=== PATIENT | female | born 2000 | race Caucasian/White ===

== ENCOUNTER 2024-09-30 15:14 | Outpatient (CLI) | payer MEDICAID, SELFPAY ==
[2024-09-30 21:58] LABS: Bacterial Vaginosis* POSITIVE (Negative); Candida glab/krus NOT DETECTED (No Detected); Candida species NOT DETECTED (No Detected); Trichomonas vaginalis NOT DETECTED (No Detected)
[2024-09-30 22:29] LABS: Chlamydia DNA Amplified* NOT DETECTED (No Detected); GC DNA Amplified* NOT DETECTED (No Detected)
[2024-10-02 15:05] LABS: HPV Source Cervix; HPV, High Risk by TMA Not Detected
== END 2024-09-30 15:15 | disposition home or self-care (01) ==
PROVIDERS: PCP Obstetrics & Gynecology; Visit Provider Registered Nurse
DX: Z11.3 Encounter for screening for infections with a predominantly sexual mode of transmission (principal); Z12.4 Encounter for screening for malignant neoplasm of cervix; Z13.6 Encounter for screening for cardiovascular disorders; Z13.1 Encounter for screening for diabetes mellitus; Z83.49 Family history of other endocrine, nutritional and metabolic diseases
CPT/HCPCS: 80061; 81513; 84443; 86592; 86703; 86803; 87340; 87481; 87491; 87591; 87624; 87625; 87661; 88141; 88142

== ENCOUNTER 2024-10-06 15:50 | Outpatient (CLI) | payer MEDICAID, SELFPAY ==
--- NOTE | 2024-10-06 16:00 | CRLHL7_ITS ---
For Patients: As a result of the Century Cures Act, medical imaging exams and procedure reports are released immediately into your electronic medical record. You may view this report before your referring provider. If you have questions, please contact your health care provider. INDICATION: feeling IUD strings, assess placement COMPARISON: none TECHNIQUE: 2D ambriz scale and color Doppler images were acquired of the pelvis using a transabdominal and transvaginal approach. FINDINGS: Sonographic images demonstrate a normal size and smooth outer contour of the uterus. Uterus measures 8.8 cm in length by 4.4 cm in AP diameter by 5.2 cm in transverse dimension. The myometrium has a normal uniform echotexture. The endometrial lining appears normal and measures 8.9 mm in composite thickness. IUD is present in good position within the endometrial canal. The right ovary measures 3.4 x 2.1 x 3.3 cm in size and the left ovary measures 3.1 x 1.2 x 2.1 cm. The ovaries demonstrate normal arterial and venous blood flow on color Doppler analysis. There are no suspicious fluid collections within the cul-de-sac. Benign cyst within the right ovary measures 1.5 x 1.4 x 1.4 cm. IMPRESSION: Normal position of an IUD within the endometrial canal. Dictated by Real Gómez MD @ 10/07/2024 7:01:06 AM (Electronically Signed)
== END 2024-10-06 15:51 | disposition home or self-care (01) ==
LOC: US 15:51
PROVIDERS: PCP Obstetrics & Gynecology; Visit Provider Registered Nurse
DX: T83.89XA Other specified complication of genitourinary prosthetic devices, implants and grafts, initial encounter (principal); R10.2 Pelvic and perineal pain
CPT/HCPCS: 76830; 76856